=== PATIENT | male | born 1955 | race American Indian/Alaskan Native ===

== ENCOUNTER 2017-01-09 15:27 | Emergency (ER) | payer MEDICAID ==
[2017-01-09 17:20] LABS: Basophils % (Auto) 0.9 % (0.0-1.8); Eosinophils % (Auto) 1.1 % (0.0-4.3); Hematocrit 37.4 % (35.5-45.6); Hemoglobin 12.2 gm/dl (11.8-15.2); Mean Corpuscular HGB Conc 33 % (32-34); Mean Corpuscular Hemoglobin 28 pg (28-32); Mean Corpuscular Volume 85 fl (84-94); Platelet Count 199 K/mm3 (140-440); Red Blood Count 4.41 M/mm3 (3.65-5.03); Red Cell Distribution Width 15.3 % (13.2-15.2); White Blood Count 6.5 K/mm3 (4.5-11.0)
[2017-01-09 17:38] LABS: Anion Gap 21 mmol/L; Blood Urea Nitrogen 12 mg/dL (9-20); Calcium 8.6 mg/dL (8.4-10.2); Carbon Dioxide 23 mmol/L (22-30); Chloride 94.4 mmol/L (98-107); Glucose 233 mg/dL (75-100); Potassium 3.8 mmol/L (3.6-5.0); Sodium 135 mmol/L (137-145)
--- NOTE | 2017-01-09 19:48 | XRay Report ---
FINAL REPORT EXAM: XR CHEST ROUTINE 2V HISTORY: Shortness of breath TECHNIQUE: PA and lateral chest radiographs PRIORS: None. FINDINGS: No mediastinal shift. Cardiac silhouette is not enlarged. Elevation of the left hemidiaphragm. No pneumothorax, effusion, or focal pulmonary opacity. No acute skeletal finding. IMPRESSION: No acute pulmonary finding. Elevation of the left hemidiaphragm is of unknown chronicity.
[2017-01-09 20:28] LABS: INR 1.09 (0.87-1.13)
[2017-01-09 20:29] LABS: Partial Thromboplastin Time 29.6 Sec. (24.2-36.6)
[2017-01-10] MEDS ORDERED: MORPHINE IM ONE (00:06)
[2017-01-10] MEDS ORDERED: KEFLEX PO ONE (00:06)
[2017-01-10] MEDS ORDERED: TENIVAC IM ONE (00:06)
[2017-01-10 00:18] VITALS: BP 174/112
--- NOTE | 2017-01-10 01:10 | Emergency Department Report ---
HPI - General Chief Complaint: Extremity Problem,Nontraumatic Time Seen by Provider: 01/09/17 23:12 - HPI HPI: The patient is a 61-year-old male with a history of long-standing bilateral lower extremity venous insufficiency and lymphedema, who presents for evaluation of recurrence of leg pain and leg swelling. The patient reports 1 day of constant and moderate in severity pain to the bilateral lower extremities , throbbing in quality, and is exacerbated with movement of the lower legs. The patient shares that he also endured a skin tear to the right lower extremity earlier today. The patient denies trauma to the right leg, fever, purulent drainage or discharge, chills, night sweats, color change to the lower extremities, abdominal pain, chest pain, dyspnea, hemoptysis. ED Past Medical Hx - Past Medical History Previous Medical History?: Yes Hx Hypertension: Yes Hx CVA: Yes Additional medical history: right sided weakness, Clem edema with weeping legs and feet - Surgical History Past Surgical History?: Yes Additional Surgical History: Right ankle surgery - Social History Smoking Status: Current Every Day Smoker Substance Use Type: Alcohol, Prescribed - Medications Home Medications: Home Medications Medication Instructions Recorded Confirmed Last Taken Type Cephalexin [Keflex] 500 mg PO Q6HR #20 capsule 01/10/17 Unknown Rx HYDROcodone/APAP 7.5-325 [[place] 1 each PO Q8HR PRN #10 tablet 01/10/17 Unknown Rx 7.5-325 mg TAB] ED Review of Systems ROS: Stated complaint: EDEMIA IN LOWER EXTREMITIES Other details as noted in HPI Constitutional: denies: fever ENT: denies: throat or neck pain Respiratory: denies: cough, shortness of breath Cardiovascular: denies: chest pain Endocrine: denies unexplained weight loss or gain Gastrointestinal: denies: abdominal pain, nausea Genitourinary: denies: dysuria Musculoskeletal: Reports leg pain and leg swelling Skin: denies: rash Neurological: denies: headache Hematological/Lymphatic: denies: easy bleeding or easy bruising Psych: denies sadness or hopelessness Physical Exam - Physical Exam Vital Signs: Vital Signs 01/09/17 01/09/17 01/09/17 16:36 23:10 23:15 Temperature 98.6 F 99.1 F Pulse Rate 117 H 117 H Respiratory 20 15 Rate Blood Pressure 128/70 Blood Pressure 173/94 [Left] O2 Sat by Pulse 95 96 96 Oximetry 01/09/17 01/09/17 01/09/17 23:21 23:30 23:34 Temperature Pulse Rate 119 H 119 H Respiratory 14 17 15 Rate Blood Pressure 173/94 163/83 Blood Pressure [Left] O2 Sat by Pulse 95 92 96 Oximetry 01/09/17 01/09/17 23:41 23:51 Temperature Pulse Rate 114 H 117 H Respiratory 12 11 L Rate Blood Pressure 163/83 168/76 Blood Pressure [Left] O2 Sat by Pulse 96 96 Oximetry Physical Exam: General: well-nourished, well-developed, no acute distress Head: Normocephalic, atraumatic Eyes: normal sclera ENT: Mucous membranes are pink and moist Neck: trachea midline, neck supple, No neck stiffness, no cervical adenopathy Respiratory: Breath sounds equal bilaterally, no wheezing, rales, or rhonchi Cardio: S1 and S2 present, no murmurs, rubs, gallops, capillary refill is brisk Abdomen: Normoactive bowel sounds, soft abdomen, no rigidity, no guarding or rebound tenderness Musc: Bilateral lower extremity lymphedema and 2+ pitting edema present, tenderness to palpation present bilaterally to distal lower extremity circumferentially, no erythema, no warmth, no fluctuance, no purulent discharge or drainage, multiple well-healing chronic ulcers present as well, skin tear present to right medial anterior gray. Skin: No rash Neuro: no facial drooping, normal speech Psych: Normal affect ED Course Vital Signs 01/09/17 01/09/17 01/09/17 16:36 23:10 23:15 Temperature 98.6 F 99.1 F Pulse Rate 117 H 117 H Respiratory 20 15 Rate Blood Pressure 128/70 Blood Pressure 173/94 [Left] O2 Sat by Pulse 95 96 96 Oximetry 01/09/17 01/09/17 01/09/17 23:21 23:30 23:34 Temperature Pulse Rate 119 H 119 H Respiratory 14 17 15 Rate Blood Pressure 173/94 163/83 Blood Pressure [Left] O2 Sat by Pulse 95 92 96 Oximetry 01/09/17 01/09/17 23:41 23:51 Temperature Pulse Rate 114 H 117 H Respiratory 12 11 L Rate Blood Pressure 163/83 168/76 Blood Pressure [Left] O2 Sat by Pulse 96 96 Oximetry ED Medical Decision Making - Lab Data Result diagrams: 01/09/17 17:08 01/09/17 17:08 - Medical Decision Making The patient was seen and examined by myself. The patient is placed on a buttonhole marker and continuous pulse ox. On initial evaluation, the patient was found to be in no distress. The patient is given an IM dose of morphine for pain and a tetanus immunization. The patient's skin tear wound is copiously irrigated with normal saline. As the patient's skin is severely taut, I do not feel that attempting to approximate skin tear wound edges will be successful. The patient is given a tablet of Keflex for prophylaxis of infection. The patient was reevaluated and reported that their symptoms were markedly improved. The patient is stable for discharge with outpatient follow-up. The patient is given follow-up and return instructions. The patient expressed understanding and agreed with the plan. The patient is discharged in stable condition. The patient is given a prescription for Keflex and encouraged to follow-up with wound clinic. Critical care attestation.: If time is entered above; I have spent that time in minutes in the direct care of this critically ill patient, excluding procedure time. ED Disposition Clinical Impression: Leg pain, bilateral Leg edema Qualifiers: Laterality: bilateral Qualified Code(s): R60.0 - Localized edema Skin tear of right lower leg without complication Qualifiers: Encounter type: initial encounter Qualified Code(s): S81.801A - Unspecified open wound, right lower leg, initial encounter Disposition: DISCHARGED TO HOME OR SELFCARE Is pt being admited?: No Does the pt Need Aspirin: No Condition: Stable Instructions: Leg Edema (ED), Skin Tear (ED), Lymphedema (ED) Prescriptions: Cephalexin [Keflex] 500 mg PO Q6HR #20 capsule HYDROcodone/APAP 7.5-325 [[place] 7.5-325 mg TAB] 1 each PO Q8HR PRN #10 tablet PRN Reason: Pain Referrals: PRIMARY CARE,MD [Primary Care Provider] - 3-5 Days Time of Disposition: 00:09
== END 2017-01-10 01:10 | disposition home or self-care (01) ==
LOC: ED 15:27
DX: S81.801A Unspecified open wound, right lower leg, initial encounter (principal); R60.0 Localized edema; M79.605 Pain in left leg; I10 Essential (primary) hypertension; I63.9 Cerebral infarction, unspecified; F17.200 Nicotine dependence, unspecified, uncomplicated; X58.XXXA Exposure to other specified factors, initial encounter; Y93.9 Activity, unspecified; Y99.9 Unspecified external cause status; Y92.9 Unspecified place or not applicable
CPT/HCPCS: 36415; 71020; 80048; 82550; 83880; 84484; 85025; 85610; 85730; 90471; 90714; 93005; 93010; 96372; 99285; J2270